=== PATIENT | male | born 1960 | race Caucasian/White ===

== ENCOUNTER 2018-11-30 09:50 | Day surgery (SDC) | payer OTHER ==
[2018-11-30] MEDS ORDERED: MIDAZOLAM 1 MG/ML 2 ML INJ ×2 (12:36)
[2018-11-30] MEDS ORDERED: FENTAnyl 50 MCG/ML VIAL (12:36)
== END 2018-11-30 15:18 | disposition home or self-care (01) ==
LOC: GIL 09:50
DX: Z12.11 Encounter for screening for malignant neoplasm of colon (principal); D12.2 Benign neoplasm of ascending colon; K57.30 Diverticulosis of large intestine without perforation or abscess without bleeding; K64.8 Other hemorrhoids; I10 Essential (primary) hypertension
CPT/HCPCS: 45380; 88305